=== PATIENT | male | born 1935 | race Caucasian/White ===

== ENCOUNTER 2017-05-08 13:59 | Inpatient (IN) | payer MEDICARE, OTHER ==
[2017-05-08] MEDS ORDERED: Acetaminophen 325 MG TAB PO PRN (15:08)
[2017-05-08] MEDS ORDERED: Bisacodyl 5 MG TAB PO PRN (15:10)
[2017-05-08 15:20] LABS: #Eosinphils 0.2 thou/uL (0.0-0.7); #Lymphocytes 2.5 thou/uL (1.20-3.40); #Monocytes 1.1 thou/uL (0.11-0.59); %Basophils 0.2 % (0.0-1.0); %Eosinophils 2.8 % (0.0-10.0); %Lymphocytes 28.3 % (21.0-51.0); %Monocytes 12.5 % (0.0-10.0); %Neutrophils 56.3 % (42.0-75.0); Hemoglobin 14.8 g/dL (14.0-18.0); Mean Corpuscular HGB CONC 34.2 g/dL (32.0-36.0); Mean Corpuscular Hemoglobin 33.4 pg (27.0-31.0); Mean Corpuscular Volume 97.6 fl (80.0-94.0); Mean Platelet Volume 8.9 fL (7.4-10.4); Platelet Count 240 thou/uL (130-400); RBC Distribution Width 13.2 % (11.5-14.5); Red Blood Cell (RBC) Count 4.43 mill/uL (4.70-6.10); White Blood Cell (WBC) Count 8.8 thou/uL (4.8-10.8)
[2017-05-08 15:26] LABS: Hemoglobin A1c 5.2 % (4.0-6.0)
[2017-05-08 15:42] LABS: ALT (SGPT) 23 U/L (8-55); AST (SGOT) 31 U/L (5-34); Albumin 4.1 g/dL (3.4-4.8); Alkaline Phosphatase 104 U/L (40-150); Anion Gap 13 mmol/L (10-20); BUN (Urea Nitrogen) 21 mg/dL (8.4-25.7); Bilirubin, Total 0.6 mg/dL (0.2-1.2); Calc. Creatinine Clearance 0 mL/min (70-130); Calcium 9.4 mg/dL (7.8-10.44); Carbon Dioxide 30 mmol/L (23-31); Chloride 100 mmol/L (98-107); Estimated GFR-MDRD 54; Globulin 2.8 g/dL (2.4-3.5); Glucose 110 mg/dL (83-110); Potassium 3.6 mmol/L (3.5-5.1); Protein, Total 6.9 g/dL (5.8-8.1); Sodium 139 mmol/L (136-145)
--- NOTE | 2017-05-08 16:11 | EKG ---
Test Reason : Blood Pressure : / mmHG Vent. Rate : 068 BPM Atrial Rate : 068 BPM P-R Int : 226 ms QRS Dur : 104 ms QT Int : 414 ms P-R-T Axes : -14 -26 033 degrees QTc Int : 440 ms Sinus rhythm with 1st degree A-V block Anteroseptal infarct , age undetermined Abnormal ECG Confirmed by PAUL NOVAK ([id number]) on 05/08/2017 4:11:12 PM Referred By: HALIE Confirmed By:PAUL NOVAK
[2017-05-08] MEDS: cefTRIAXone\\ROCEPHIN 1 GM, Syringe 0.4 ML in Sterile Water 9.6 ML SLOW IVP SCH (17:12)
[2017-05-08] MEDS: Vancomycin HCl 1 GM in Premix Bag 1 BAG IVPB SCH (17:12)
--- NOTE | 2017-05-08 18:29 | CT ---
CT ANGIOGRAM OF THE ABDOMEN AND PELVIS AND BILATERAL LOWER EXTREMITIES RUNOFF PROTOCOL 05/08/17 COMPARISON: None. HISTORY: Left foot gangrene, assess arterial blood flow. TECHNIQUE: Serial axial CT imaging a t 2.5 mm intervals from the lung bases through the feet with IV contrast us ing a CT angiogram protocol. Coronal and sagittal 3D reformatted imaging obtained. FINDINGS: Heart appears prominent. Midline sternotomy wire are present. Incompletely imaged coronary arterial c alcification noted. Imaged lung bases grossly unremarkable. There is a right hip prosthesis present. Scattered subcentimeter hypodensities are noted within the liver, likely on the basis of cysts, too s mall to characterize. Spleen, gallbladder, pancreas, adrenal glands, and kidneys demonstrate no acute findings. There is a mild degree of diffuse renal cortical thinning noted bilaterally. There is a small fat containing inguinal hernia on the left. Lack of oral contrast limits assessment of the bowel. There is scattered diverticulosis of the descending colon, sigmoid colon, and transvers e colon with no evidence for diverticulitis. No evidence for bowel obstruction or appendicitis. No lymphadenopathy is seen within the abdomen or pelvis. Scattered atherosclerotic calcification of t he abdominal aorta, most prominent in the infrarenal region. There is mild stenosis at the origin of the celiac axis and the superior mesenteric artery with assoc iated mild atherosclerotic calcification at the ostia. There is atherosclerotic calcification at the origin bilateral renal arteries with no hemodynamically significant stenosis appreciated. ..There is no aneurysm or dissection involving the abdominal aorta. Bilateral common iliac arteries are patent and demonstrate extensive atherosclerotic calcification. T here is diffuse atherosclerotic calcification of the bilateral internal iliac arteries. Bilateral external iliac arteries appear unremarkable. RIGHT LOWER EXTREMITY: There is significant atherosclerotic calcified plaque within the right common femoral artery. Right p rofunda femoral artery is patent and normal in course/caliber. The right superficial femoral artery d emonstrates no hemodynamically significant stenosis and the right popliteal artery is unremarkable. The right anterior tibial artery appears patent to the level of the mid calf. The right tibioperoneal trunk is patent. The right posterior tibial artery extends into the foot and the right perineal swapna ry is patent to the mid calf. LEFT LOWER EXTREMITY: There is mild atherosclerotic calcification of the left common femoral artery. Left profunda femoral artery is normal. There is mild scattered atherosclerotic calcification of the left superficial femor al artery which is otherwise unremarkable. Left popliteal artery is grossly unremarkable. The left anterior tibial artery extends to the level of the ankle. The left tibioperoneal trunk is pa tent. The left peroneal artery extends to the ankle and the left posterior tibial artery extends to t he foot. The osseous structures demonstrate no acute findings. There is degenerative change of the lower lumbar spine with multilevel disc space narrowing, degenera tive end plate change and facet hypertrophy. There is osteophyte formation involving bilateral sacroi liac joints and there is multilevel lumbar spine laminectomy change. Age indeterminate anterior wedge compression fracture with mild to moderate anterior wedging noted at L4 vertebral body. IMPRESSION: 1. Atherosclerotic calcification as detailed above. 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 2. Numerous incidental findings as described above. POS: [facility]
[2017-05-08] MEDS: Gabapentin 300 MG CAP PO SCH (21:01)
[2017-05-08] MEDS: Simvastatin 5 MG TAB PO SCH (21:02)
[2017-05-09] MEDS: Vancomycin HCl 1 GM in Premix Bag 1 BAG IVPB SCH ×2 (04:44→17:56)
[2017-05-09] MEDS: cefTRIAXone\\ROCEPHIN 1 GM, Syringe 0.4 ML in Sterile Water 9.6 ML SLOW IVP SCH ×2 (05:00→16:53)
[2017-05-09] MEDS: Tamsulosin HCl 0.4 MG CAP PO SCH (08:59)
[2017-05-09] MEDS: Polyethylene Glycol 3350 17 GM Packet PO SCH (08:59)
[2017-05-09] MEDS: Simvastatin 5 MG TAB PO SCH (20:12)
[2017-05-09] MEDS: Gabapentin 300 MG CAP PO SCH (20:12)
[2017-05-10] MEDS: cefTRIAXone\\ROCEPHIN 1 GM, Syringe 0.4 ML in Sterile Water 9.6 ML SLOW IVP SCH ×2 (05:03→17:44)
[2017-05-10 05:29] LABS: Vancomycin, Trough 13.9 ug/mL
[2017-05-10] MEDS: Vancomycin HCl 1 GM in Premix Bag 1 BAG IVPB SCH ×2 (06:05→17:45)
[2017-05-10] MEDS: Polyethylene Glycol 3350 17 GM Packet PO SCH (08:48)
[2017-05-10] MEDS: Tamsulosin HCl 0.4 MG CAP PO SCH (08:51)
--- NOTE | 2017-05-10 10:33 | RAD ---
LEFT GREAT TOE 3 VIEWS: HISTORY: Pain in left great toe. Assess for osteomyelitis. FINDINGS: There are mild degenerative changes at the 1st MTP joint and at the IP joint of the great toe. No ly tic or destructive process identified. IMPRESSION: No plain film evidence of osteomyelitis identified. POS: [facility]
[2017-05-10] MEDS: Gabapentin 300 MG CAP PO SCH (20:08)
[2017-05-10] MEDS: Simvastatin 5 MG TAB PO SCH (20:08)
[2017-05-11] MEDS: Vancomycin HCl 1 GM in Premix Bag 1 BAG IVPB SCH (04:43)
[2017-05-11] MEDS: cefTRIAXone\\ROCEPHIN 1 GM, Syringe 0.4 ML in Sterile Water 9.6 ML SLOW IVP SCH (04:43)
--- NOTE | 2017-05-11 06:44 | DIS ---
HOSPITAL COURSE: This is an 81-year-old gentleman who presented to the office with cellulitis in his foot and an ulcer on the tip of his left-great toe. He was admitted to the hospital and begun on IV antibiotics with resolution of his swelling, cellulitis, and discomfort. The drainage that he had f rom the tip of his toe ceased. CT angiography was done demonstrating no significant peripheral vascu lar disease. This was suspected based on examination in the office, where he had excellent Doppler s tudies. He then underwent an x-ray of his left great toe, which showed no evidence of osteomyelitis. He will be discharged today to resume his home medications, which include oral antibiotics prescrib ed by Dr. Archibald just prior to admission. Discharge and follow up instructions were given. 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 X-ray studies as noted. His white c ount was normal on admission with normal hemoglobin. His creatinine was slightly elevated at 1.28 wi th a normal GFR. His hemoglobin A1c was 5.2 and that was normal.
[2017-05-11 07:52] VITALS: BP 137/77; TEMP 97.7
[2017-05-11] MEDS: Tamsulosin HCl 0.4 MG CAP PO SCH (08:19)
[2017-05-11] MEDS: Polyethylene Glycol 3350 17 GM Packet PO SCH (08:20)
== END 2017-05-11 09:15 | disposition home or self-care (01) | DRG 603 ==
LOC: T4-A 13:59
PROVIDERS: ADMIT Thoracic Surgery (Cardiothoracic Vascular Surgery); ATTEND Thoracic Surgery (Cardiothoracic Vascular Surgery)
DX: L03.116 Cellulitis of left lower limb (principal); L97.529 Non-pressure chronic ulcer of other part of left foot with unspecified severity; Z95.1 Presence of aortocoronary bypass graft; I10 Essential (primary) hypertension; E78.2 Mixed hyperlipidemia; I25.10 Atherosclerotic heart disease of native coronary artery without angina pectoris; N40.0 Benign prostatic hyperplasia without lower urinary tract symptoms; Z87.891 Personal history of nicotine dependence; Z79.82 Long term (current) use of aspirin; Z79.899 Other long term (current) drug therapy; Z96.641 Presence of right artificial hip joint
CPT/HCPCS: 36415; 75635; 80053; 80202; 83036; 85025; 93005; 93010; 96372; 99213; A4216; G0463; J0696; J3370

== ENCOUNTER 2017-07-26 15:06 | Outpatient (CLI) | payer MEDICARE, OTHER ==
[~2017-07-26 15:06] MED LIST: Gadobenate Dimeglumine 529 MG/1 ML (20ML VIAL) ONE
--- NOTE | 2017-07-26 16:56 | MRI ---
MRI LUMBAR SPINE WITH AND WITHOUT GADOLINIUM CONTRAST: 07/26/17 HISTORY: Low back pain. Compression fracture. Prior surgery. Bilateral radiculopathy. FINDINGS: There is desiccation of the lowest five intervertebral discs. Compression of the L4 superior end plat e results in loss of height by approximately 30%. Minimal residual edema is present within the ict sales representative ior aspect of the superior end plate. There is minimal retropulsion. T12-L1: osteophytosis. Central canal and neural foramina are patent. L1-2: Mild disc space narrowing. Posterior disc bulge and circumferential degenerative changes with m oderate stenosis of the central canal. There is moderate right and severe left foraminal stenosis. L2-3: Disc space narrowing. Posterior disc bulge and circumferential degenerative changes with modera te stenosis of the central canal. There is moderate right and severe left foraminal stenosis. L3-4: Disc space narrowing. Posterior disc bulge and circumferential degenerative changes with mild s tenosis. Posterior operative decompression. Degenerative changes result in severe bilateral foraminal stenoses, left greater than right. L4-5: Posterior operative decompression. Posterior disc bulge. Thecal sac remains patent. Degenerativ e change result in severe bilateral foraminal stenosis, right greater than left. L5-S1: Mild posterior disc bulge. Thecal sac is patent. Degenerative changes with mild to moderate bi lateral foraminal stenoses. IMPRESSION: 1. Old L4 superior end plate compression deformity. No acute compressions are evident. 2. Posterior operative decompression of the lower lumbar spine. 3. Multilevel degenerative changes, including severe bilateral foraminal stenoses, as detailed a georgie. POS: [facility]
== END 2017-07-26 15:07 | disposition home or self-care (01) ==
LOC: MRI 15:06
PROVIDERS: ATTEND Neurological Surgery
DX: Z01.812 Encounter for preprocedural laboratory examination (principal); M43.8X6 Other specified deforming dorsopathies, lumbar region; M47.26 Other spondylosis with radiculopathy, lumbar region; M99.83 Other biomechanical lesions of lumbar region; Z98.890 Other specified postprocedural states
CPT/HCPCS: 72158; 82565; A9579

== ENCOUNTER 2017-09-10 10:26 | Outpatient (CLI) | payer MEDICARE, OTHER ==
[2017-09-10 12:14] LABS: Hemoglobin 14.2 g/dL (14.0-18.0); Mean Corpuscular HGB CONC 33.9 g/dL (32.0-36.0); Mean Corpuscular Hemoglobin 32.6 pg (27.0-31.0); Mean Corpuscular Volume 96.2 fL (78.0-98.0); Mean Platelet Volume 10.2 fL (7.4-10.4); Platelet Count 147 thou/uL (130-400); RBC Distribution Width 12.5 % (11.5-14.5); Red Blood Cell (RBC) Count 4.37 mill/uL (4.70-6.10); White Blood Cell (WBC) Count 7.8 thou/uL (4.8-10.8)
[2017-09-10 12:30] LABS: Anion Gap 12 mmol/L (10-20); BUN (Urea Nitrogen) 18 mg/dL (8.4-25.7); Calc. Creatinine Clearance 0 mL/min (70-130); Calcium 9.2 mg/dL (7.8-10.44); Carbon Dioxide 27 mmol/L (23-31); Chloride 106 mmol/L (98-107); Estimated GFR-MDRD 74; Glucose 97 mg/dL (83-110); Potassium 3.9 mmol/L (3.5-5.1); Sodium 141 mmol/L (136-145)
== END 2017-09-10 10:27 | disposition home or self-care (01) ==
LOC: LABBT 10:26
PROVIDERS: ATTEND Neurological Surgery
DX: Z01.812 Encounter for preprocedural laboratory examination (principal); M48.061 Spinal stenosis, lumbar region without neurogenic claudication
CPT/HCPCS: 80048; 85027

== ENCOUNTER 2017-09-14 06:12 | Observation (INO) | payer MEDICARE, OTHER ==
--- NOTE | 2017-09-14 00:06 | HP ---
HISTORY OF PRESENT ILLNESS: Mr. Hammonds is a pleasant 82-year-old man known to us for previous lumbar decompression, who returns now with recurrent bilateral hip pain and some neurogenic claudication sym ptoms in the setting of a new MRI that reveals significant stenosis at the more cranial lumbar levels , particularly between L1 and L3, likely contributing to his symptoms. He hopes to move forward with surgery. PAST MEDICAL HISTORY: Hypertension, hypercholesterolemia. PAST SURGICAL HISTORY: CABG x3, right hemiarthroplasty, and a lumbar decompression. MEDICATIONS: Quinapril and hydrochlorothiazide, simvastatin, aspirin, magnesium. ALLERGIES: No known drug allergies. PHYSICAL EXAMINATION: The patient is alert and oriented x3. Gait is slow and antalgic. ASSESSMENT: Lumbar stenosis. PLAN: Dr. Wise met with the patient, reviewed imaging and advocated for an L1 through L3 decompress ion as well as a left L3 facetectomy. He explained to the patient the risks, benefits, and alternati ves of the procedure. The patient expressed understanding and would like to move forward with surger y as discussed. I do believe the patient is mentally competent and capable of making medical decisio ns for himself. We will move forward with surgery as planned. Chetan Berman PA-C, dictating under Alphonso Wise M.D.
[2017-09-14] MEDS ORDERED: CEFAZOLIN/Water 2 GM/20 ML SYRINGE ONE ×2 (06:53→15:11)
[2017-09-14] MEDS ORDERED: Fentanyl 100 MCG/2 ML VIAL ONE ×3 (07:05→10:09)
[2017-09-14] MEDS ORDERED: Midazolam HCl 2 mg/2 ml Vial ONE (07:06)
[2017-09-14] MEDS ORDERED: Thrombin 5000 UNITS/5 ML VIAL ONE (07:08)
[2017-09-14] MEDS ORDERED: Bupivacaine HCl 0.5%/Epinephrine 1:200,000/PF 30 ml Vial ONE (07:08)
[2017-09-14] MEDS ORDERED: HYDROmorphone 0.5 MG/0.5 ML SYRINGE ONE (09:06)
[2017-09-14] MEDS ORDERED: Tamsulosin HCl 0.4 MG CAP ONE (10:15)
[2017-09-14] MEDS ORDERED: Ondansetron HCl/PF 4 MG/2 ML Vial ONE (10:19)
[2017-09-14] MEDS ORDERED: Ketorolac Tromethamine 30 MG/ML VIAL ONE (10:19)
[2017-09-14] MEDS ORDERED: Lidocaine 1% PF 5 ML VIAL ONE (10:19)
[2017-09-14] MEDS ORDERED: PHENYLEPHRINE-NS 100 MCG/ML 10 ML SYRINGE ONE (10:19)
[2017-09-14] MEDS ORDERED: ePHEDrine/0.9% NaCl/PF SYRINGE 50 mg/10 ml ONE (10:19)
[2017-09-14] MEDS ORDERED: Glycopyrrolate 0.2 MG/ML 5 ML SYRINGE ONE (10:19)
[2017-09-14] MEDS ORDERED: PROPOFOL 200 MG/20 ML VIAL ONE (10:19)
[2017-09-14 18:00] VITALS: BMI 29.0
[2017-09-14] MEDS ORDERED: diphenhydrAMINE 50 MG/ML VIAL IVP PRN (18:47)
[2017-09-14] MEDS ORDERED: tiZANidine HCl 4 MG TAB PO PRN ×2 (18:47→19:52)
[2017-09-14] MEDS ORDERED: Acetaminophen 325 MG TAB PO PRN (18:47)
[2017-09-14] MEDS ORDERED: Acetaminophen 650 MG Suppository PR PRN (18:47)
[2017-09-14] MEDS ORDERED: Sodium Chloride 0.9% 1,000 ML IV SCH (18:47)
[2017-09-14] MEDS ORDERED: Acetaminophen/Codeine 30-300mg Tablet PO PRN ×2 (18:47)
[2017-09-14] MEDS ORDERED: diphenhydrAMINE 25 MG CAP PO PRN (18:47)
[2017-09-14] MEDS ORDERED: Mag-Al 1200 mg/1200 mg/30 ML UDCUP PO PRN (18:47)
[2017-09-14] MEDS ORDERED: Bisacodyl 10 MG SUPP PR PRN (18:47)
[2017-09-14] MEDS ORDERED: Cepastat Lozenges 1 LOZ PO PRN (19:51)
[2017-09-14] MEDS ORDERED: Ondansetron HCl/PF 4 MG/2 ML Vial IVP PRN (19:53)
[2017-09-14] MEDS ORDERED: CEFAZOLIN/Water 2 GM/20 ML SYRINGE SLOW IVP SCH (23:00)
[2017-09-15] MEDS ORDERED: Tamsulosin HCl 0.4 MG CAP PO SCH (06:00)
[2017-09-15 08:17] VITALS: BP 113/67; TEMP 97.8
--- NOTE | 2017-09-15 09:23 | PRG ---
DATE OF SERVICE: 09/15/2017 Mr. Alphonso Hammonds is 1 day out from decompression of the lumbar spine. He feels well enough this morni ng that he wants to go home. His drain is in place and he has put out a reasonable amount. His simone ls have been stable with a T-max of 98.7. Mr. Hammonds is ambulatory. He is in his home going clothes already and he is eating breakfast. We went over home going instructions as far as activity restriction. Wound care and followup arrange ments. He has our office phone number and will call us if he needs attention.
--- NOTE | 2017-09-24 17:53 | EKG ---
Test Reason : PREOP Blood Pressure : / mmHG Vent. Rate : 069 BPM Atrial Rate : 060 BPM P-R Int : 228 ms QRS Dur : 104 ms QT Int : 464 ms P-R-T Axes : 006 -20 -10 degrees QTc Int : 497 ms Sinus rhythm with 1st degree A-V block with occasional Premature ventricular complexes Low voltage QRS Cannot rule out Anteroseptal infarct (cited on or before 08-MAY-2017) Abnormal ECG When compared with ECG of 08-MAY-2017 15:32, Premature ventricular complexes are now Present QT has lengthened Confirmed by DR. Richard SCOTT ([id number]) on 09/24/2017 5:53:06 PM Referred By: Michael SMITH Confirmed By:DR. Richard SCOTT
--- NOTE | 2017-10-12 12:01 | OP ---
DATE OF PROCEDURE: 09/14/2017 SURGEON: Alphonso Wise M.D. OILSEED MEAT PRESSER: Chetan Berman PA-C. INDICATION: Pain. DIAGNOSIS: Lumbar stenoss, lumbar radiculopathy. PROCEDURE: Reoperation L1 through L3 lumbar decompression, left L3 facetectomy, foraminotomy. ANESTHESIA: General. TECHNIQUE: The patient was brought into the operating room and placed under anesthesia. He was flip ped from a supine to prone position on the operating room table. A linear incision was planned loenardo ing L1 through L3. This encompassed a portion of the patient's prior incision. After prepping and d raping and after an appropriate operative pause, the incision was created. The soft tissues were swe pt away from midline. Self-retaining retractors were placed in the wound for optimal exposure. Afte r confirming the appropriate level with C-arm fluoroscopy and dissecting through a substantial degree of scar, Adson rongeurs as well as a high-speed cutting drill bit as well as 2, 3 and 4-mm Kerrison was used to perform a laminectomy spanning L1 through L3. After decompressing the central canal, we redirected our attention to the left L3 lateral recess where a medial facetectomy was performed of th e exiting L3 nerve root. After decompressing the left L3 nerve root, the wound was irrigated. Hemos tasis was maintained throughout. The wound was then closed in anatomic layers and a pressure dressin g was applied. There were no known procedural complications.
== END 2017-09-15 10:10 | disposition home or self-care (01) ==
LOC: SDC 06:12 → SJJU 17:16
PROVIDERS: ADMIT Neurological Surgery; ATTEND Neurological Surgery
PROC: 01NB0ZZ Release Lumbar Nerve, Open Approach (ICD-10-PCS; principal; 2017-09-14)
DX: M48.062 Spinal stenosis, lumbar region with neurogenic claudication (principal); M54.16 Radiculopathy, lumbar region; I10 Essential (primary) hypertension; E78.00 Pure hypercholesterolemia, unspecified; Z79.82 Long term (current) use of aspirin; Z79.891 Long term (current) use of opiate analgesic; Z79.899 Other long term (current) drug therapy; Z98.890 Other specified postprocedural states
CPT/HCPCS: 51701; 51798; 63047; 63048 ×2; 76001; 93005; 96374 ×2; G0378; 93010; J0670; J1170; J1885; J2001; J2250; J2405; J2704; J3010

== ENCOUNTER 2019-04-29 00:40 | Emergency (ER) | payer MEDICARE, OTHER ==
[2019-04-29] MEDS ORDERED: Orphenadrine Citrate 60 MG/2 ML VIAL IM ONE (05:45)
--- NOTE | 2019-04-29 08:29 | RAD ---
LUMBAR SPINE 3 VIEWS: Date: 04/29/2019 HISTORY: Low back pain. FINDINGS: Severe multilevel disc osteophytosis. Stable vertical height loss of L4 vertebral body. Evidence for lower lumbar spine laminectomy changes. IMPRESSION: Dextroscoliosis. Stable vertebral body collapse of L4. Severe spondylosis. Status post laminectomy of the lower lumbar spine. No significant overt acute process. POS: [facility]
== END 2019-04-29 02:47 | disposition home or self-care (01) ==
LOC: ERS 00:40
DX: S39.012A Strain of muscle, fascia and tendon of lower back, initial encounter (principal); I10 Essential (primary) hypertension; E78.00 Pure hypercholesterolemia, unspecified; Z79.82 Long term (current) use of aspirin; X50.1XXA Overexertion from prolonged static or awkward postures, initial encounter; Y93.B9 Activity, other involving muscle strengthening exercises; Y92.830 Public park as the place of occurrence of the external cause; Y99.8 Other external cause status
CPT/HCPCS: 72100; 96372

== ENCOUNTER 2019-06-13 12:15 | Outpatient (CLI) | payer MEDICARE, OTHER ==
[~2019-06-13 12:15] MED LIST changes: -Gadobenate Dimeglumine 529 MG/1 ML (20ML VIAL) ONE; +Magnevist 469MG/ML 20 ML VIAL ONE
--- NOTE | 2019-06-13 13:05 | RAD ---
MRI clearance face one view HISTORY: Evaluate for MRI clearance. FINDINGS: No metallic foreign bodies overlying either orbit. Dental hardware overlies the mouth. Patient is cleared radiographically for MRI.
--- NOTE | 2019-06-13 15:06 | MRI ---
MRI OF THE RIGHT HIP WITHOUT CONTRAST: INDICATION: History of right hip replacement with complaints of right hip pain and lower back strain after a fall 60 days ago. COMPARISON: None. TECHNIQUE: Multiplanar, multisequence MR images were obtained of the right hip without IV contrast. FINDINGS: There is susceptibility artifact from the patient's known right total hip prosthesis. There is a 2. 1 x 4.1 cm fluid collection seen along the posterolateral aspect of the right greater trochanter, und erlying a subcutaneous incision site of the posterolateral right hip, likely related to a small amoun t of joint fluid with a residual joint capsular dehiscence. There is an overt surrounding inflammati on or a subcutaneous abscess identified. The visualized bone marrow signal intensity outside of this susceptibility artifact appears within normal limits. No overt iliopsoas bursitis is evident. The right gluteus minimus and medias tendons appear intact. No enlarged lymph nodes are evident. There is scattered diverticula involving the colon. Visualized right SI joint appears within normal limits . There is a necrotic-appearing wedge compression abnormality of L4. IMPRESSION: 1. No definite acute abnormality. 2. Postprocedural change of a right total hip prosthesis. There is a small fluid collection seen al rafael the posterolateral aspect of the greater trochanter that underlies the surgical excision of the r ight posterolateral hip. This is likely related to a postoperative fluid collection possibly related to a joint fluid collection or a ganglion adjacent to an area of joint capsular dehiscence from the patient's prior right total hip arthroplasty. No enlarged lymph nodes are evident. There is no mane s soft tissue abnormality to suggest the presence of soft tissue infection. POS: [facility]
--- NOTE | 2019-06-13 15:32 | MRI ---
Nonspecific EXAM: LEFT HIP MRI WITHOUT IV CONTRAST: 06/13/19 HISTORY: Left hip pain. COMPARISON: 10/19/16. There is some focal fatty change in portion of the gluteus minimus muscle. This has more the appearan ce of fatty replacement. No evidence for abnormal marrow edema. No avascular necrosis, fracture, or a cute stress injury. There is a suggestion of very minimal fluid in the subgluteus medius bursa. There is some linear increased signal associated with the common hamstring tendon insertion region, eviden ce for some focal tendinopathy or possibly minimal interstitial tearing. No significant abnormal flui d collection within the trochanteric bursa. There is irregularity of the anterior labrum, evidence fo r a degenerative type anterior labral tear. There is some narrowing of the superior aspect of the hip joint, evidence for some arthrosis. IMPRESSION: Some fatty change in the gluteus minimus muscle. Nonspecific edematous change in lower dorsal paraspinal backstrap musculature. Minimal tendinopathy of the gluteus medius tendon with tiny amount of subgluteus medius bursal fluid. There is evidence for prominent irregularity of the anterior labrum, evidence for degenerative type labral tearing. Tendinopathy and undersurface and possible mild interstitial tearing of the common hamstring tendon insertion region. No evidence for abnormal marrow signal or acute marrow edema or ot her significant acute process. POS: [facility]
--- NOTE | 2019-06-13 16:06 | MRI ---
MRI Lumbar Spine with and without IVcontrast: HISTORY: Radiculopathy, lumbar region. Patient states low back pain and bilateral hip pain, and pain is worsen ing. Patient states strained low back about 60 days ago. History of prior lumbar surgery. COMPARISON: 07/26/2017 FINDINGS: The visualized retroperitoneal structures demonstrate a normal appearance. Conus medullaris is normal in morphology and terminates at the L1 level. There is stable height loss of a compression fracture involving the L4 vertebral body. There has been interval development of a wedge-shaped compression fracture of the L2 vertebral body with at least 30% height loss anteriorly. Increased fluid signal intensity is seen within this vertebral body as we ll as enhancement most compatible with a more recent compression fracture. There is enhancement seen in the adjacent paravertebral soft tissues anteriorly and laterally on the left at this level wh ich is likely related to reactive inflammatory changes due to the compression fracture. There is focal area of bone marrow edema in the right aspect of the superior endplate of the L2 vertebral body . This may also be related to prior injury as well, but there is no vertical height loss of this vertebral body. Postoperative changes related to laminectomy defects extending from the L3-4 to L5-S1 level are again noted. L1-2: Mild loss of intervertebral disc height with broad-based disc osteophyte complex seen. Facet hy pertrophic changes are again noted at this level. There is mild to moderate central canal narrowing with moderate right and severe left-sided neural foraminal narrowing similar to the prior exam. Degre e of central canal narrowing is less prominent when compared to the prior exam. There was prominence of the epidural fat posteriorly noted on the prior examination which attributed to the gre ater degree of central canal narrowing on prior study. The prominent area of epidural fat is not seen on this exam. L2-3: Broad-based disc osteophyte complex is present with mild facet hypertrophic changes. There is n o significant central canal narrowing at this level. Again, the prominence of epidural fat posteriorly on the prior exam attributed to the central canal narrowing which has improved from prior exam. However, there is persistent bilateral neural foraminal narrowing at this level with moderate right and severe left-sided neural foraminal narrowing. L3-4: Broad-based disc osteophyte complex is present with mild facet hypertrophic changes. Laminectom y defect is present posteriorly at this level. Findings result in slight effacement of the ventral aspect of the thecal sac. Moderate to severe right and severe left-sided neural foraminal narrowing a re present at this level. Degree of neural foraminal narrowing is overall similar to the prior exam. L4-5: Broad-based disc osteophyte complex and facet hypertrophic changes are present at this level. L aminectomy defect is present posteriorly. Severe right and moderate to severe left-sided neural foraminal narrowing are present similar to prior study. L5-S1: Broad-based disc osteophyte complex is again seen. There is prominence of the epidural fat ant eriorly, but there is no significant narrowing of the central spinal canal. Mild neural foraminal narrowing is present. IMPRESSION: 1. Recent wedge-shaped compression fracture L2 vertebral body. In addition, there is a small focal si gnal abnormality seen in the right anterolateral aspect of the L1 vertebral body which also could be related to recent injury as well. 3. Remote and stable compression fracture L4 vertebral body. 3. Multilevel degenerative changes throughout the lumbar spine with varying degrees of moderate and s evere neural foraminal narrowing at multiple levels overall similar to prior study.
== END 2019-06-13 12:16 | disposition home or self-care (01) ==
LOC: BICMRI 12:15
PROVIDERS: ATTEND Neurological Surgery
DX: M47.26 Other spondylosis with radiculopathy, lumbar region (principal); M25.551 Pain in right hip; M25.552 Pain in left hip; M48.061 Spinal stenosis, lumbar region without neurogenic claudication; S32.020A Wedge compression fracture of second lumbar vertebra, initial encounter for closed fracture; S73.102A Unspecified sprain of left hip, initial encounter; M67.952 Unspecified disorder of synovium and tendon, left thigh; M62.89 Other specified disorders of muscle; Z96.641 Presence of right artificial hip joint
CPT/HCPCS: 70210; 72158; 82565; A9579

== ENCOUNTER 2019-07-03 08:57 | Outpatient (CLI) | payer MEDICARE, OTHER ==
--- NOTE | 2019-07-03 10:09 | RAD ---
LUMBAR SPINE 2 VIEWS: Date: 07/03/2019 INDICATION: Compression fracture follow-up. COMPARISON: 04/29/2019 plain films and MRI of 06/13/2019. FINDINGS: When compared to the 2 view plain film exam of 04/29/2019, there has been progression of compression deformity at the L1 level when compared to 04/29/2019. Central and anterior compression at this verte bral body has occurred since 04/29/2019 with loss of central and anterior height of 25%. The compression deformity at L2 appears stable. When compared to MRI of 06/13/2019, the compression at L1 has progressed since that exam also. L2 and L4 appear stable from the MRI of 06/13/2019. IMPRESSION: Compression deformity at L1 has occurred since the MRI of 06/13/2019. The compression deformities at L2 and L4 appear stable. POS: [facility]
== END 2019-07-03 08:58 | disposition home or self-care (01) ==
LOC: BICRAD 08:57
PROVIDERS: ATTEND Neurological Surgery
DX: S32.019D Unspecified fracture of first lumbar vertebra, subsequent encounter for fracture with routine healing (principal); S32.049D Unspecified fracture of fourth lumbar vertebra, subsequent encounter for fracture with routine healing
CPT/HCPCS: 72100

== ENCOUNTER 2019-07-25 09:44 | Outpatient (CLI) | payer MEDICARE, OTHER ==
--- NOTE | 2019-07-25 10:41 | RAD ---
EXAM: XR Lumbar Spine 2 Or 3 View PROVIDED CLINICAL HISTORY: Compression fracture. COMPARISON: 07/03/2019 FINDINGS: Compression fracture L1 vertebral body is again seen, and there does appear to be slight increased ve rtical height loss compared to the prior study with mild increased sclerosis along the fracture as well. There is approximately 50% loss of height present. Stable degrees of height loss are seen involving the compression fractures of the L2 and L4 vertebral bodies. Trace retrolisthesis of L3 on L4 is present with suggestion of trace grade 1 anterolisthesis of L4 on L5. Facet degenerative changes are seen. Laminectomy defects are seen involv ing the spine extending from L2 to L5. Vascular calcifications are seen in the abdominal aorta and involving the iliac arteries. IMPRESSION: 1 Mild interval increase in degree of height loss involving the compression fracture of the L1 verteb ral body with increased sclerosis along the superior endplate of the fracture as well. 2. Stable vertical height loss of compression fractures involving L2 and L4 vertebral bodies.
--- NOTE | 2019-07-25 13:38 | BD ---
Exam: DEXA Bone Density 07/25/19 HISTORY: 83-year-old male with compression fracture. FINDINGS: Lumbar Spine: BMD (g/cm2) T-SCORE Z-SCORE L1 1.060 -0.1 1.0 L2 0.973 -1.1 0.2 L3 1.003 -0.9 0.4 L4 1.061 =0.3 1.0 L1-L4 1.024 -0.6 0.6 Femoral Neck: 0.652 -2.0 -0.4 Total Femur: 0.834 -1.3 -0.1 Impression: Osteopenia. POS: [facility]
== END 2019-07-25 09:45 | disposition home or self-care (01) ==
LOC: BICMAMMO 09:44
PROVIDERS: ATTEND Neurological Surgery
DX: Z13.820 Encounter for screening for osteoporosis (principal); S32.019D Unspecified fracture of first lumbar vertebra, subsequent encounter for fracture with routine healing; S32.029D Unspecified fracture of second lumbar vertebra, subsequent encounter for fracture with routine healing; S32.049D Unspecified fracture of fourth lumbar vertebra, subsequent encounter for fracture with routine healing; M85.89 Other specified disorders of bone density and structure, multiple sites; G95.89 Other specified diseases of spinal cord
CPT/HCPCS: 72100; 77080

== ENCOUNTER 2020-02-06 11:17 | Outpatient (CLI) | payer MEDICARE, OTHER ==
--- NOTE | 2020-02-06 11:44 | RAD ---
EXAM: Lumbar spine 4 views including standing flexion and extension views HISTORY: Lumbar radiculopathy COMPARISON: 07/25/2019 FINDINGS: Stable vertical height loss of L4, L2, and L1 vertebral. Alignment:Moderate dextroscoliosis. Discs: Significant disc degenerative disease. No evidence for a focal bone lesion. IMPRESSION: Severe spondylosis. Stable vertical height loss of L1, L2, and L4. No evidence for abnormal translation between flexion and extension.
== END 2020-02-06 11:18 | disposition home or self-care (01) ==
LOC: BICRAD 11:17
PROVIDERS: ATTEND Neurological Surgery
DX: M47.26 Other spondylosis with radiculopathy, lumbar region (principal); M43.8X6 Other specified deforming dorsopathies, lumbar region
CPT/HCPCS: 72110

== ENCOUNTER 2022-04-28 09:44 | Outpatient (CLI) | payer MEDICARE, OTHER | END 2022-04-28 09:45 | disposition home or self-care (01) | LOC: RAD 09:44 | PROVIDERS: ATTEND Family Medicine | DX: S20.212A Contusion of left front wall of thorax, initial encounter (principal) ==

== ENCOUNTER 2022-09-18 08:48 | Outpatient (CLI) | payer MEDICARE, OTHER | END 2022-09-18 08:49 | disposition home or self-care (01) | LOC: RAD 08:48 | PROVIDERS: ATTEND Family Medicine | DX: M25.551 Pain in right hip (principal); Z96.641 Presence of right artificial hip joint ==

== ENCOUNTER 2022-10-20 10:17 | Outpatient (CLI) | payer MEDICARE, OTHER | END 2022-10-20 10:18 | disposition home or self-care (01) | LOC: BICMRI 10:17 | PROVIDERS: ATTEND Neurological Surgery | DX: M47.26 Other spondylosis with radiculopathy, lumbar region (principal); M25.551 Pain in right hip; Z98.890 Other specified postprocedural states | CPT/HCPCS: 72148 ==

== ENCOUNTER 2023-08-08 19:22 | Inpatient (IN) | payer MEDICARE, OTHER ==
[2023-08-08 21:00] LABS: #Basophils 0.03 10x3/uL (0.0-0.2); %Basophils 0.4 % (0.0-1.0); %Eosinophils 2.2 % (0.0-10.0); %Lymphocytes 24.3 % (21.0-51.0); %Monocytes 10.4 % (0.0-10.0); %Neutrophils 62.3 % (42.0-75.0); Hematocrit 36.8 % (42.0-52.0); Hemoglobin 12.3 g/dL (14.0-18.0); Mean Corpuscular HGB CONC 33.4 g/dL (32.0-36.0); Mean Corpuscular Hemoglobin 33.2 pg (27.0-31.0); Mean Corpuscular Volume 99.2 fL (78.0-98.0); Mean Platelet Volume 11.8 fL (7.4-10.4); Platelet Count 175 10x3/uL (130-400); RBC Distribution Width 12.4 % (11.5-14.5); Red Blood Cell (RBC) Count 3.71 mill/uL (4.70-6.10)
[2023-08-08 21:16] LABS: ALT (SGPT) 22 U/L (8-55); AST (SGOT) 27 U/L (5-34); Albumin 3.3 g/dL (3.4-4.8); Alkaline Phosphatase 91 U/L (40-110); Anion Gap 14 mmol/L (10-20); BUN (Urea Nitrogen) 31 mg/dL (8.4-25.7); Bilirubin, Total 0.3 mg/dL (0.2-1.2); Calc. Creatinine Clearance 0 mL/min (70-130); Calcium 8.5 mg/dL (7.8-10.44); Carbon Dioxide 25 mmol/L (23-31); Chloride 109 mmol/L (98-107); Estimated GFR 68; Globulin 2.2 g/dL (2.4-3.5); Glucose 104 mg/dL (83-110); Potassium 4.3 mmol/L (3.5-5.1); Protein, Total 5.5 g/dL (5.8-8.1); Sodium 144 mmol/L (136-145)
[2023-08-08 21:20] LABS: INR-International Normal Ratio 1.1; Prothrombin Time 13.8 sec (12.0-14.7)
[2023-08-08 21:21] LABS: PTT 33.4 sec (22.9-36.1)
[2023-08-08] MEDS ORDERED: Morphine 4 MG/ML VIAL ONE (21:48)
[2023-08-08] MEDS ORDERED: Ondansetron ODT 4 MG TAB SL PRN (22:30)
[2023-08-08] MEDS ORDERED: Acetaminophen 325 MG TAB PO PRN (22:30)
[2023-08-08] MEDS ORDERED: Ondansetron PF 4 MG/2 ML Vial IVP PRN (22:30)
[2023-08-09 00:38] VITALS: BMI 23.4
[2023-08-09] MEDS: Morphine 2 MG/ML VIAL SLOW IVP PRN ×2 (00:53→13:45)
[2023-08-09] MEDS: traMADol HCl 50 MG TAB PO PRN (01:57)
[2023-08-09 05:24] LABS: #Basophils 0.03 10x3/uL (0.0-0.2); %Basophils 0.3 % (0.0-1.0); %Eosinophils 0.7 % (0.0-10.0); %Lymphocytes 14.9 % (21.0-51.0); %Monocytes 9.3 % (0.0-10.0); %Neutrophils 74.5 % (42.0-75.0); Hematocrit 37.1 % (42.0-52.0); Hemoglobin 12.3 g/dL (14.0-18.0); Mean Corpuscular HGB CONC 33.2 g/dL (32.0-36.0); Mean Corpuscular Hemoglobin 32.1 pg (27.0-31.0); Mean Corpuscular Volume 96.9 fL (78.0-98.0); Mean Platelet Volume 11.8 fL (7.4-10.4); Platelet Count 166 10x3/uL (130-400); RBC Distribution Width 12.4 % (11.5-14.5); Red Blood Cell (RBC) Count 3.83 mill/uL (4.70-6.10)
[2023-08-09 06:16] LABS: Anion Gap 10 mmol/L (10-20); BUN (Urea Nitrogen) 25 mg/dL (8.4-25.7); Calc. Creatinine Clearance 68 mL/min (70-130); Calcium 8.6 mg/dL (7.8-10.44); Carbon Dioxide 24 mmol/L (23-31); Chloride 110 mmol/L (98-107); Estimated GFR 85; Glucose 107 mg/dL (83-110); Potassium 3.9 mmol/L (3.5-5.1); Sodium 140 mmol/L (136-145)
[2023-08-09] MEDS ORDERED: Cyclobenzaprine 10 MG TAB PO PRN (06:50)
[2023-08-09] MEDS ORDERED: traMADol HCl 50 MG TAB PO PRN (06:50)
[2023-08-09] MEDS: Sodium Chloride 0.9% 1,000 ML IV SCH (09:27)
[2023-08-09] MEDS: Ketorolac Tromethamine 30 MG (1 mL) VIAL IVP SCH (09:29)
[2023-08-09] MEDS: Acetaminophen 325 MG TAB PO SCH (09:30)
[2023-08-09] MEDS: Tamsulosin HCl 0.4 MG CAP PO SCH ×2 (09:31→20:16)
[2023-08-09] MEDS: Polyethylene Glycol 3350 17 GM Packet PO SCH (09:32)
[2023-08-09] MEDS: Rosuvastatin 20 MG TAB PO SCH (09:32)
[2023-08-09] MEDS: Senokot S 8.6-50 MG TAB PO SCH (09:32)
[2023-08-09] MEDS: Lactulose 20 GM (30 mL) UDCUP PO SCH (09:32)
[2023-08-09] MEDS: Hydrochlorothiazide 25 MG TAB PO SCH (09:35)
[2023-08-09] MEDS ORDERED: traMADol HCl 50 MG TAB PO SCH (12:00)
[2023-08-09] MEDS: Acetaminophen/Codeine 30-300mg Tablet PO SCH (12:01)
[2023-08-09] MEDS: Pregabalin 50 MG CAP PO SCH (20:15)
[2023-08-09] MEDS: Ketorolac Tromethamine 30 MG (1 mL) VIAL IVP PRN (20:16)
[2023-08-10 06:02] LABS: #Basophils Less than 0.03 10x3/uL (0.0-0.2); %Basophils 0.2 % (0.0-1.0); %Lymphocytes 21.4 % (21.0-51.0); %Monocytes 12.2 % (0.0-10.0); %Neutrophils 62.8 % (42.0-75.0); Hematocrit 36.7 % (42.0-52.0); Hemoglobin 12.2 g/dL (14.0-18.0); Mean Corpuscular HGB CONC 33.2 g/dL (32.0-36.0); Mean Corpuscular Volume 99.2 fL (78.0-98.0); Platelet Count 144 10x3/uL (130-400); RBC Distribution Width 12.4 % (11.5-14.5)
[2023-08-10 06:16] LABS: Anion Gap 9 mmol/L (10-20); BUN (Urea Nitrogen) 24 mg/dL (8.4-25.7); Calc. Creatinine Clearance 67 mL/min (70-130); Calcium 8.5 mg/dL (7.8-10.44); Carbon Dioxide 27 mmol/L (23-31); Chloride 105 mmol/L (98-107); Estimated GFR 84; Glucose 106 mg/dL (83-110); Potassium 4.2 mmol/L (3.5-5.1); Sodium 137 mmol/L (136-145)
[2023-08-10] MEDS: Aspirin 81 mg Enteric Coated Tablet PO SCH (08:17)
[2023-08-10] MEDS: Acetaminophen 325 MG TAB PO SCH (09:17)
[2023-08-10] MEDS: Furosemide 20 MG TAB PO SCH (09:18)
[2023-08-10] MEDS: Acetaminophen/Codeine 30-300mg Tablet PO SCH (11:36)
[2023-08-11] MEDS: HYDROcodone/Acetaminophen 7.5/325 mg Tablet PO SCH (12:18)
[2023-08-12] MEDS: Cyclobenzaprine 10 MG TAB PO PRN (04:00)
[2023-08-12 11:46] VITALS: BP 114/71; TEMP 98.4
== END 2023-08-12 13:40 | DRG 536 ==
LOC: ERS 19:22 → SURG A 22:10
PROVIDERS: ADMIT Surgery; ATTEND Surgery
PROC: 0HQGXZZ Repair Left Hand Skin, External Approach (ICD-10-PCS; principal; 2023-08-08)
DX: S72.001A Fracture of unspecified part of neck of right femur, initial encounter for closed fracture (principal); M97.01XA Periprosthetic fracture around internal prosthetic right hip joint, initial encounter; I10 Essential (primary) hypertension; W18.30XA Fall on same level, unspecified, initial encounter; Y93.01 Activity, walking, marching and hiking; S61.012A Laceration without foreign body of left thumb without damage to nail, initial encounter; E78.00 Pure hypercholesterolemia, unspecified; Z96.641 Presence of right artificial hip joint; Y92.098 Other place in other non-institutional residence as the place of occurrence of the external cause; Z79.899 Other long term (current) drug therapy; Z95.1 Presence of aortocoronary bypass graft; Z79.82 Long term (current) use of aspirin
CPT/HCPCS: 12001; 36415; 71045; 72170; 80048; 80053; 85025; 85610; 85730; 93005; 96374; G0390; J1885; J2270; J2272; J7050

== ENCOUNTER 2023-08-21 11:41 | Inpatient (IN) | payer MEDICARE, OTHER ==
[2023-08-21] MEDS ORDERED: Morphine 4 MG/ML VIAL ONE ×2 (12:30→14:24)
[2023-08-21] MEDS ORDERED: Ondansetron PF 4 MG/2 ML Vial ONE ×2 (12:30→14:24)
[2023-08-21 12:44] LABS: #Basophils 0.05 10x3/uL (0.0-0.2); %Basophils 0.4 % (0.0-1.0); %Eosinophils 0.7 % (0.0-10.0); %Lymphocytes 15.1 % (21.0-51.0); %Monocytes 9.7 % (0.0-10.0); %Neutrophils 72.5 % (42.0-75.0); Hematocrit 39.9 % (42.0-52.0); Hemoglobin 13.8 g/dL (14.0-18.0); Mean Corpuscular HGB CONC 34.6 g/dL (32.0-36.0); Mean Corpuscular Hemoglobin 32.3 pg (27.0-31.0); Mean Corpuscular Volume 93.4 fL (78.0-98.0); Mean Platelet Volume 11.5 fL (7.4-10.4); Platelet Count 415 10x3/uL (130-400); RBC Distribution Width 12.4 % (11.5-14.5); Red Blood Cell (RBC) Count 4.27 mill/uL (4.70-6.10)
[2023-08-21 13:06] LABS: ALT (SGPT) 33 U/L (8-55); AST (SGOT) 36 U/L (5-34); Albumin 2.7 g/dL (3.4-4.8); Alkaline Phosphatase 212 U/L (40-110); Anion Gap 14 mmol/L (10-20); BUN (Urea Nitrogen) 24 mg/dL (8.4-25.7); Bilirubin, Total 0.7 mg/dL (0.2-1.2); Calc. Creatinine Clearance 0 mL/min (70-130); Carbon Dioxide 25 mmol/L (23-31); Chloride 101 mmol/L (98-107); Estimated GFR 87; Globulin 3.3 g/dL (2.4-3.5); Glucose 111 mg/dL (83-110); Potassium 4.8 mmol/L (3.5-5.1); Sodium 135 mmol/L (136-145)
[2023-08-21] MEDS ORDERED: traMADol HCl 50 MG TAB PO PRN ×2 (15:35→21:18)
[2023-08-21] MEDS ORDERED: Ondansetron PF 4 MG/2 ML Vial IVP PRN (15:35)
[2023-08-21] MEDS ORDERED: Morphine 2 MG/ML VIAL SLOW IVP PRN (15:35)
[2023-08-21 18:20] VITALS: BMI 23.4
[2023-08-21] MEDS ORDERED: Ondansetron ODT 4 MG TAB PO PRN (21:09)
[2023-08-21] MEDS ORDERED: Dextrose 5% in Water 1,000 ML IV PRN (21:09)
[2023-08-21] MEDS ORDERED: Glucagon 1 MG/ML KIT IM PRN (21:09)
[2023-08-21] MEDS ORDERED: Dextrose 50% Abboject 50 ML SYRINGE SLOW IVP PRN (21:09)
[2023-08-22] MEDS: Sodium Chloride 0.9% 1,000 ML IV SCH (05:23)
[2023-08-22] MEDS: Morphine 4 MG/ML VIAL SLOW IVP PRN (05:25)
[2023-08-22 05:35] LABS: #Basophils 0.03 10x3/uL (0.0-0.2); %Basophils 0.3 % (0.0-1.0); %Eosinophils 1.3 % (0.0-10.0); %Lymphocytes 19.4 % (21.0-51.0); %Monocytes 12.3 % (0.0-10.0); %Neutrophils 64.8 % (42.0-75.0); Hemoglobin 12.2 g/dL (14.0-18.0); Mean Corpuscular HGB CONC 33.9 g/dL (32.0-36.0); Mean Corpuscular Hemoglobin 32.8 pg (27.0-31.0); Mean Corpuscular Volume 96.8 fL (78.0-98.0); Mean Platelet Volume 10.9 fL (7.4-10.4); Platelet Count 350 10x3/uL (130-400); RBC Distribution Width 12.4 % (11.5-14.5); Red Blood Cell (RBC) Count 3.72 mill/uL (4.70-6.10)
[2023-08-22 05:57] LABS: Anion Gap 13 mmol/L (10-20); BUN (Urea Nitrogen) 20 mg/dL (8.4-25.7); Calc. Creatinine Clearance 75 mL/min (70-130); Calcium 8.3 mg/dL (7.8-10.44); Carbon Dioxide 24 mmol/L (23-31); Chloride 101 mmol/L (98-107); Estimated GFR 87; Glucose 97 mg/dL (83-110); Potassium 4.3 mmol/L (3.5-5.1); Sodium 134 mmol/L (136-145)
[2023-08-22] MEDS: Lisinopril 10 MG TAB PO SCH (09:03)
[2023-08-22] MEDS: Hydrochlorothiazide 25 MG TAB PO SCH (09:03)
[2023-08-22] MEDS: Famotidine 20 MG TAB PO SCH (09:03)
[2023-08-22] MEDS: Pregabalin 50 MG CAP PO SCH (09:04)
[2023-08-22] MEDS: Rosuvastatin 20 MG TAB PO SCH (09:04)
[2023-08-22] MEDS: Lactated Ringer's 1,000 ML IV SCH (09:05)
[2023-08-22] MEDS ORDERED: PROPOFOL 20 ML ONE (14:26)
[2023-08-22] MEDS ORDERED: Lidocaine 2% PF 5 ML VIAL ONE (14:26)
[2023-08-22] MEDS ORDERED: Sodium Chloride 0.9% 250 ML 250 ML ONE (14:28)
[2023-08-22] MEDS ORDERED: Phenylephrine 10 MG/ML VIAL ONE (14:28)
[2023-08-22] MEDS ORDERED: fentaNYL PF 100 MCG/2 ML SYRINGE ONE (14:57)
[2023-08-22] MEDS ORDERED: Ketorolac Tromethamine 30 MG (1 mL) VIAL ONE (15:18)
[2023-08-22] MEDS ORDERED: fentaNYL 50 mcg/mL 1 mL Vial ONE (15:54)
[2023-08-22 18:58] VITALS: BMI 23.4
[2023-08-22] MEDS: Tamsulosin HCl 0.4 MG CAP PO SCH (21:14)
[2023-08-22] MEDS: Lactated Ringer's 500 ML IV SCH (21:15)
[2023-08-22] MEDS: CEFAZOLIN 2 GM in Sodium Chloride 0.9% 100 ML IVPB SCH (21:15)
[2023-08-23 06:34] LABS: #Basophils 0.04 10x3/uL (0.0-0.2); #Eosinphils Less than 0.03 10x3/uL (0.0-0.7); %Basophils 0.2 % (0.0-1.0); %Eosinophils 0.1 % (0.0-10.0); %Lymphocytes 9.4 % (21.0-51.0); %Monocytes 10.9 % (0.0-10.0); %Neutrophils 78.2 % (42.0-75.0); Hematocrit 32.6 % (42.0-52.0); Hemoglobin 11.1 g/dL (14.0-18.0); Mean Corpuscular Hemoglobin 33.2 pg (27.0-31.0); Mean Corpuscular Volume 97.6 fL (78.0-98.0); Mean Platelet Volume 10.8 fL (7.4-10.4); Platelet Count 399 10x3/uL (130-400); RBC Distribution Width 12.4 % (11.5-14.5); Red Blood Cell (RBC) Count 3.34 mill/uL (4.70-6.10)
[2023-08-23] MEDS ORDERED: Acetaminophen/Codeine 30-300mg Tablet PO PRN (09:37)
[2023-08-23] MEDS: Sodium Chloride 0.9% 500 ML IV SCH ×2 (09:38→12:17)
[2023-08-23] MEDS: Enoxaparin 40 MG (0.4 mL) SYRINGE SC SCH (09:38)
[2023-08-23] MEDS: Acetaminophen 325 MG TAB PO PRN (09:42)
[2023-08-23] MEDS: Lactated Ringer's 1,000 ML IV SCH (16:44)
[2023-08-23 17:44] LABS: Bacteria/HPF None Seen HPF (None Seen); Bilirubin Negative (Negative); Blood, Urine Negative (Negative); CAUTI Indications for Culture Alt mental st,lethar; Clarity Clear (Clear); Glucose, Urine (Dipstick) Normal (Negative); Ketone, Urine Negative (Negative); Leukocyte Negative Leu/uL (Negative); Nitrite Negative (Negative); Protein, Urine (Dipstick) Negative (Neg-Trace); RBC/HPF 0-3 HPF (0-3); Specific Gravity, Urine 1.019 (1.002-1.036); Squamous Epithelial 0-3 HPF (0-3); Urobilinogen Normal mg/dL (Less than 2); pH, Urine 5.5 (5.0-9.0)
[2023-08-23 17:58] LABS: Urine Culture Reflex No No
[2023-08-23] MEDS: QUEtiapine 25 MG TAB PO SCH (22:26)
[2023-08-24 04:57] LABS: #Basophils 0.03 10x3/uL (0.0-0.2); %Basophils 0.2 % (0.0-1.0); %Eosinophils 0.4 % (0.0-10.0); %Lymphocytes 12.2 % (21.0-51.0); %Monocytes 11.7 % (0.0-10.0); %Neutrophils 74.5 % (42.0-75.0); Hematocrit 29.1 % (42.0-52.0); Hemoglobin 9.8 g/dL (14.0-18.0); Mean Corpuscular HGB CONC 33.7 g/dL (32.0-36.0); Mean Corpuscular Hemoglobin 32.6 pg (27.0-31.0); Mean Corpuscular Volume 96.7 fL (78.0-98.0); Mean Platelet Volume 10.7 fL (7.4-10.4); Platelet Count 310 10x3/uL (130-400); RBC Distribution Width 12.5 % (11.5-14.5); Red Blood Cell (RBC) Count 3.01 mill/uL (4.70-6.10)
[2023-08-24 05:17] LABS: Anion Gap 11 mmol/L (10-20); BUN (Urea Nitrogen) 21 mg/dL (8.4-25.7); Calc. Creatinine Clearance 77 mL/min (70-130); Calcium 7.8 mg/dL (7.8-10.44); Carbon Dioxide 23 mmol/L (23-31); Chloride 103 mmol/L (98-107); Estimated GFR 88; Glucose 107 mg/dL (83-110); Potassium 4.3 mmol/L (3.5-5.1); Sodium 133 mmol/L (136-145)
[2023-08-24] MEDS: Cyclobenzaprine 10 MG TAB PO PRN (19:35)
[2023-08-24] MEDS: Senokot S 8.6-50 MG TAB PO SCH (19:36)
[2023-08-25 04:47] LABS: #Basophils 0.03 10x3/uL (0.0-0.2); %Basophils 0.2 % (0.0-1.0); %Eosinophils 0.3 % (0.0-10.0); %Lymphocytes 13.7 % (21.0-51.0); %Monocytes 12.3 % (0.0-10.0); %Neutrophils 72.1 % (42.0-75.0); Hematocrit 30.9 % (42.0-52.0); Hemoglobin 10.3 g/dL (14.0-18.0); Mean Corpuscular HGB CONC 33.3 g/dL (32.0-36.0); Mean Corpuscular Hemoglobin 32.6 pg (27.0-31.0); Mean Corpuscular Volume 97.8 fL (78.0-98.0); Mean Platelet Volume 10.5 fL (7.4-10.4); Platelet Count 378 10x3/uL (130-400); RBC Distribution Width 12.5 % (11.5-14.5); Red Blood Cell (RBC) Count 3.16 mill/uL (4.70-6.10)
[2023-08-25 05:11] LABS: Anion Gap 12 mmol/L (10-20); BUN (Urea Nitrogen) 18 mg/dL (8.4-25.7); Calc. Creatinine Clearance 80 mL/min (70-130); Calcium 8.1 mg/dL (7.8-10.44); Carbon Dioxide 24 mmol/L (23-31); Chloride 102 mmol/L (98-107); Estimated GFR 89; Glucose 108 mg/dL (83-110); Potassium 4.3 mmol/L (3.5-5.1); Sodium 134 mmol/L (136-145)
[2023-08-25] MEDS: Polyethylene Glycol 3350 17 GM Packet PO SCH (08:28)
[2023-08-25 11:25] VITALS: BP 117/64; TEMP 97.7
== END 2023-08-25 14:46 | DRG 467 ==
LOC: ERS 11:41 → SURG A 16:12
PROVIDERS: ADMIT Surgery; ATTEND Surgery
PROC: 0SR90JZ Replacement of Right Hip Joint with Synthetic Substitute, Open Approach (ICD-10-PCS; principal; 2023-08-22)
PROC: 0SP90JZ Removal of Synthetic Substitute from Right Hip Joint, Open Approach (ICD-10-PCS; 2023-08-22)
DX: S72.91XA Unspecified fracture of right femur, initial encounter for closed fracture (principal); M97.01XA Periprosthetic fracture around internal prosthetic right hip joint, initial encounter; W19.XXXA Unspecified fall, initial encounter; I10 Essential (primary) hypertension; E11.9 Type 2 diabetes mellitus without complications; G47.00 Insomnia, unspecified; G31.84 Mild cognitive impairment of uncertain or unknown etiology; I95.9 Hypotension, unspecified
CPT/HCPCS: 36415; 71045; 72170; 80048; 80053; 81001; 85025; 87040; 93005; 96374; 96375; C1776; G0390; J1650; J1885; J2001; J2270; J2371; J2405; J2704; J3010; J3490; J7030; J7050; J7120

== ENCOUNTER 2023-09-15 14:46 | Inpatient (IN) | payer MEDICARE, OTHER ==
[~2023-09-15 14:46] MED LIST changes: +Iopamidol 370 76% 100 ML VIAL ONE; -Magnevist 469MG/ML 20 ML VIAL ONE
[2023-09-15 15:30] LABS: #Basophils Less than 0.03 10x3/uL (0.0-0.2); #Eosinphils Less than 0.03 10x3/uL (0.0-0.7); %Basophils 0.1 % (0.0-1.0); %Lymphocytes 9.1 % (21.0-51.0); %Monocytes 8.9 % (0.0-10.0); %Neutrophils 81.1 % (42.0-75.0); Hematocrit 38.2 % (42.0-52.0); Hemoglobin 12.2 g/dL (14.0-18.0); Mean Corpuscular HGB CONC 31.9 g/dL (32.0-36.0); Mean Corpuscular Hemoglobin 31.2 pg (27.0-31.0); Mean Corpuscular Volume 97.7 fL (78.0-98.0); Mean Platelet Volume 11.3 fL (7.4-10.4); Platelet Count 273 10x3/uL (130-400); RBC Distribution Width 13.8 % (11.5-14.5); Red Blood Cell (RBC) Count 3.91 mill/uL (4.70-6.10)
[2023-09-15] MEDS ORDERED: Acetaminophen 500 MG TAB ONE (15:33)
[2023-09-15] MEDS ORDERED: cefTRIAXone (ROCEPHIN) 1 GM VIAL ONE (15:33)
[2023-09-15 15:38] LABS: Bacteria/HPF 4+ HPF (None Seen); Bilirubin Negative (Negative); Blood, Urine 1+ (Negative); CAUTI Indications for Culture Dysuria,urgency,freq; Clarity Extra Turbid (Clear); Glucose, Urine (Dipstick) Normal (Negative); Ketone, Urine Negative (Negative); Leukocyte 500 Leu/uL (Negative); Nitrite Negative (Negative); Protein, Urine (Dipstick) 50 mg/dL (Neg-Trace); Specific Gravity, Urine 1.011 (1.002-1.036); Squamous Epithelial None Seen HPF (0-3); Urobilinogen Normal mg/dL (Less than 2); WBC/HPF Greater than 50 HPF (0-3)
[2023-09-15 15:40] LABS: Urine Culture Reflex Yes Yes
[2023-09-15 15:44] LABS: INR-International Normal Ratio 1.1; Prothrombin Time 14.4 sec (12.0-14.7)
[2023-09-15 15:45] LABS: PTT 35.4 sec (22.9-36.1)
[2023-09-15 15:51] LABS: ALT (SGPT) 23 U/L (8-55); AST (SGOT) 40 U/L (5-34); Albumin 2.4 g/dL (3.4-4.8); Alkaline Phosphatase 215 U/L (40-110); Anion Gap 13 mmol/L (10-20); BUN (Urea Nitrogen) 26 mg/dL (8.4-25.7); Bilirubin, Total 0.6 mg/dL (0.2-1.2); Calc. Creatinine Clearance 0 mL/min (70-130); Calcium 8.3 mg/dL (7.8-10.44); Carbon Dioxide 25 mmol/L (23-31); Chloride 103 mmol/L (98-107); Estimated GFR 74; Globulin 3.5 g/dL (2.4-3.5); Glucose 96 mg/dL (83-110); Potassium 4.2 mmol/L (3.5-5.1); Protein, Total 5.9 g/dL (5.8-8.1); Sodium 137 mmol/L (136-145)
[2023-09-15] MEDS ORDERED: Ondansetron PF 4 MG/2 ML Vial IVP PRN (16:45)
[2023-09-15] MEDS ORDERED: Ondansetron ODT 4 MG TAB SL PRN (16:45)
[2023-09-15] MEDS ORDERED: Acetaminophen 325 MG TAB PO PRN (16:45)
[2023-09-15] MEDS ORDERED: Amiodarone 450 MG in Dextrose 5% in Water 250 ML IVPB SCH (18:00)
[2023-09-15] MEDS: Vancomycin (BATCH) 2 GM in Premix 1 BAG IVPB SCH (18:39)
[2023-09-15] MEDS: Sodium Chloride 0.9% 1,000 ML IV SCH ×2 (18:41→21:46)
[2023-09-15 20:32] VITALS: BMI 22.8
[2023-09-15 20:41] LABS: Lactic Acid 1.1 mmol/L (0.5-2.2)
[2023-09-15] MEDS: Cefepime 2 GM in Sodium Chloride 0.9% 100 ML IVPB SCH (21:42)
[2023-09-15] MEDS: traMADol HCl 50 MG TAB PO PRN (21:43)
[2023-09-15] MEDS: Enoxaparin 80 MG (0.8 mL) SYRINGE SC SCH (21:44)
[2023-09-15] MEDS: Amiodarone 150 MG, Admixture Fee 1 EACH in Dextrose 5% in Water 100 ML IVPB SCH (21:47)
[2023-09-16 04:57] LABS: #Basophils Less than 0.03 10x3/uL (0.0-0.2); #Eosinphils Less than 0.03 10x3/uL (0.0-0.7); %Basophils 0.2 % (0.0-1.0); %Eosinophils 0.1 % (0.0-10.0); %Monocytes 12.5 % (0.0-10.0); %Neutrophils 78.4 % (42.0-75.0); Hematocrit 32.7 % (42.0-52.0); Hemoglobin 10.5 g/dL (14.0-18.0); Mean Corpuscular HGB CONC 32.1 g/dL (32.0-36.0); Mean Corpuscular Hemoglobin 31.5 pg (27.0-31.0); Mean Corpuscular Volume 98.2 fL (78.0-98.0); Mean Platelet Volume 11.5 fL (7.4-10.4); Platelet Count 225 10x3/uL (130-400); RBC Distribution Width 13.9 % (11.5-14.5); Red Blood Cell (RBC) Count 3.33 mill/uL (4.70-6.10)
[2023-09-16 05:23] LABS: ALT (SGPT) 22 U/L (8-55); AST (SGOT) 36 U/L (5-34); Alkaline Phosphatase 174 U/L (40-110); Anion Gap 12 mmol/L (10-20); BUN (Urea Nitrogen) 21 mg/dL (8.4-25.7); Bilirubin, Total 0.4 mg/dL (0.2-1.2); Calc. Creatinine Clearance 66 mL/min (70-130); Calcium 7.6 mg/dL (7.8-10.44); Carbon Dioxide 21 mmol/L (23-31); Chloride 112 mmol/L (98-107); Estimated GFR 85; Globulin 2.8 g/dL (2.4-3.5); Glucose 96 mg/dL (83-110); Potassium 3.9 mmol/L (3.5-5.1); Protein, Total 4.8 g/dL (5.8-8.1); Sodium 141 mmol/L (136-145)
[2023-09-16 09:05] LABS: Vancomycin, Random 15.8 ug/mL (See Comment)
[2023-09-16] MEDS: Pantoprazole DR 40 MG TAB PO SCH (09:56)
[2023-09-16] MEDS: Vancomycin 1 GM in Premix 1 BAG IVPB SCH (14:16)
[2023-09-17 04:31] LABS: Hematocrit 31.5 % (42.0-52.0); Hemoglobin 10.1 g/dL (14.0-18.0); Mean Corpuscular HGB CONC 32.1 g/dL (32.0-36.0); Mean Corpuscular Hemoglobin 30.7 pg (27.0-31.0); Mean Corpuscular Volume 95.7 fL (78.0-98.0); Mean Platelet Volume 11.7 fL (7.4-10.4); Platelet Count 207 10x3/uL (130-400); RBC Distribution Width 13.8 % (11.5-14.5); Red Blood Cell (RBC) Count 3.29 mill/uL (4.70-6.10)
[2023-09-17 05:34] LABS: Anion Gap 10 mmol/L (10-20); BUN (Urea Nitrogen) 19 mg/dL (8.4-25.7); Calc. Creatinine Clearance 69 mL/min (70-130); Calcium 7.8 mg/dL (7.8-10.44); Carbon Dioxide 23 mmol/L (23-31); Chloride 109 mmol/L (98-107); Estimated GFR 86; Glucose 103 mg/dL (83-110); Potassium 3.6 mmol/L (3.5-5.1); Sodium 138 mmol/L (136-145)
[2023-09-17] MEDS ORDERED: Acetaminophen 325 MG TAB PO PRN (08:23)
[2023-09-17] MEDS: Enoxaparin 30 MG (0.3 mL) SYRINGE SC SCH (10:31)
[2023-09-17] MEDS: Saccharomyces boulardii 250 MG CAP PO SCH (10:32)
[2023-09-17] MEDS: Pregabalin 50 MG CAP PO SCH (10:32)
[2023-09-17] MEDS: Aspirin 81 mg Enteric Coated Tablet PO SCH (10:32)
[2023-09-17] MEDS: cefTRIAXone\\ROCEPHIN 2 GM in Sodium Chloride 0.9% 100 ML IVPB SCH (12:15)
[2023-09-17 17:59] VITALS: BMI 22.8
[2023-09-17] MEDS: Rosuvastatin 20 MG TAB PO SCH (21:01)
[2023-09-18] MEDS: Enoxaparin 40 MG (0.4 mL) SYRINGE SC SCH (10:12)
[2023-09-19 04:42] LABS: Hematocrit 36.4 % (42.0-52.0); Hemoglobin 11.7 g/dL (14.0-18.0); Mean Corpuscular HGB CONC 32.1 g/dL (32.0-36.0); Mean Corpuscular Hemoglobin 30.5 pg (27.0-31.0); Mean Corpuscular Volume 94.8 fL (78.0-98.0); Mean Platelet Volume 11.6 fL (7.4-10.4); Platelet Count 241 10x3/uL (130-400); RBC Distribution Width 13.7 % (11.5-14.5); Red Blood Cell (RBC) Count 3.84 mill/uL (4.70-6.10)
[2023-09-19 05:10] LABS: Anion Gap 12 mmol/L (10-20); BUN (Urea Nitrogen) 14 mg/dL (8.4-25.7); Calc. Creatinine Clearance 79 mL/min (70-130); Calcium 7.7 mg/dL (7.8-10.44); Carbon Dioxide 24 mmol/L (23-31); Chloride 105 mmol/L (98-107); Estimated GFR 90; Glucose 96 mg/dL (83-110); Potassium 3.5 mmol/L (3.5-5.1); Sodium 137 mmol/L (136-145)
[2023-09-19] MEDS ORDERED: Lidocaine 1% PF 5 ML VIAL ONE (13:36)
[2023-09-19] MEDS ORDERED: Sodium Bicarbonate 2.5 MEQ/5 ML SDV ONE (13:36)
[2023-09-19] MEDS: Tamsulosin HCl 0.4 MG CAP PO SCH (16:39)
[2023-09-20 06:03] LABS: Hematocrit 36.3 % (42.0-52.0); Hemoglobin 11.7 g/dL (14.0-18.0); Mean Corpuscular HGB CONC 32.2 g/dL (32.0-36.0); Mean Corpuscular Hemoglobin 30.1 pg (27.0-31.0); Mean Corpuscular Volume 93.3 fL (78.0-98.0); Mean Platelet Volume 11.4 fL (7.4-10.4); Platelet Count 274 10x3/uL (130-400); RBC Distribution Width 13.8 % (11.5-14.5); Red Blood Cell (RBC) Count 3.89 mill/uL (4.70-6.10)
[2023-09-20 06:11] LABS: Anion Gap 10 mmol/L (10-20); BUN (Urea Nitrogen) 14 mg/dL (8.4-25.7); Calc. Creatinine Clearance 72 mL/min (70-130); Carbon Dioxide 28 mmol/L (23-31); Chloride 107 mmol/L (98-107); Estimated GFR 87; Glucose 96 mg/dL (83-110); Potassium 3.9 mmol/L (3.5-5.1); Sodium 141 mmol/L (136-145)
[2023-09-20 06:34] LABS: Anisocytosis SLIGHT = 6-15 cells HPF (0-5); Band 1 % (5-11); Eosinophils 1 % (0-10); Large Platelets 3.9 % (0-5); Lymphocytes 18 % (21-51); Macrocytosis SLIGHT = 6-15 cells HPF (0-5); Monocytes 4 % (0-10); Neutrophil 76 % (42-75); Platelet Adequacy Comment Platelets Normal; Polychromasia SLIGHT = 2-3 cells HPF (0-2); Smudge Cells 19.6 %
[2023-09-20] MEDS: Tamsulosin HCl 0.4 MG CAP PO SCH (09:15)
[2023-09-20 17:38] VITALS: BP 128/69; TEMP 97.8
== END 2023-09-20 17:54 | DRG 872 ==
LOC: ERS 14:46 → 2NO 16:21
PROVIDERS: ADMIT Family Medicine; ATTEND Internal Medicine
PROC: 3E03329 Introduction of Other Anti-infective into Peripheral Vein, Percutaneous Approach (ICD-10-PCS; 2023-09-15)
PROC: 02HV33Z Insertion of Infusion Device into Superior Vena Cava, Percutaneous Approach (ICD-10-PCS; principal; 2023-09-19)
PROC: B5181ZA Fluoroscopy of Superior Vena Cava using Low Osmolar Contrast, Guidance (ICD-10-PCS; 2023-09-19)
PROC: 3E04329 Introduction of Other Anti-infective into Central Vein, Percutaneous Approach (ICD-10-PCS; 2023-09-19)
PROC: B548ZZA Ultrasonography of Superior Vena Cava, Guidance (ICD-10-PCS; 2023-09-19)
DX: A41.51 Sepsis due to Escherichia coli [E. coli] (principal); N10 Acute pyelonephritis; M97.01XD Periprosthetic fracture around internal prosthetic right hip joint, subsequent encounter; R33.9 Retention of urine, unspecified; I95.1 Orthostatic hypotension; I10 Essential (primary) hypertension; D63.8 Anemia in other chronic diseases classified elsewhere; F03.90 Unspecified dementia, unspecified severity, without behavioral disturbance, psychotic disturbance, mood disturbance, and anxiety; I35.0 Nonrheumatic aortic (valve) stenosis; I25.10 Atherosclerotic heart disease of native coronary artery without angina pectoris; I45.10 Unspecified right bundle-branch block; E78.00 Pure hypercholesterolemia, unspecified; Z96.641 Presence of right artificial hip joint; Z79.82 Long term (current) use of aspirin; Z79.899 Other long term (current) drug therapy; Z98.890 Other specified postprocedural states
CPT/HCPCS: 36415; 36569; 71045; 72170; 74177; 76937; 77001; 80048; 80053; 80202; 81001; 83605; 85025; 85027; 85610; 85730; 87040; 87077; 87086; 87149; 87186; 93005; 93306; 97139; C1751; J0692; J0696; J1650; J3370; J3370-JW; J3490; J7050; Q9967

== ENCOUNTER 2023-11-26 12:11 | Outpatient (CLI) | payer MEDICARE, OTHER | END 2023-11-26 12:12 | disposition home or self-care (01) | LOC: RAD 12:11 | PROVIDERS: ATTEND Orthopaedic Surgery | DX: M54.50 Low back pain, unspecified (principal); S32.019A Unspecified fracture of first lumbar vertebra, initial encounter for closed fracture; S32.029A Unspecified fracture of second lumbar vertebra, initial encounter for closed fracture; S32.039A Unspecified fracture of third lumbar vertebra, initial encounter for closed fracture; S32.049A Unspecified fracture of fourth lumbar vertebra, initial encounter for closed fracture | CPT/HCPCS: 72100 ==

== ENCOUNTER 2024-01-22 12:54 | Outpatient (CLI) | payer MEDICARE, OTHER | END 2024-01-22 12:55 | disposition home or self-care (01) | LOC: BICRAD 12:54 | PROVIDERS: ATTEND Neurological Surgery | DX: M54.50 Low back pain, unspecified (principal); G89.29 Other chronic pain; S32.049A Unspecified fracture of fourth lumbar vertebra, initial encounter for closed fracture; M41.56 Other secondary scoliosis, lumbar region | CPT/HCPCS: 72100 ==

== ENCOUNTER 2024-02-18 13:18 | Outpatient (CLI) | payer MEDICARE, OTHER | END 2024-02-18 13:19 | disposition home or self-care (01) | LOC: BICRAD 13:18 | PROVIDERS: ATTEND Surgery | DX: M54.50 Low back pain, unspecified (principal); M43.8X6 Other specified deforming dorsopathies, lumbar region; M81.0 Age-related osteoporosis without current pathological fracture | CPT/HCPCS: 72100 ==